=== PATIENT | male | born 1950 | race Two or more races ===

== ENCOUNTER 2016-12-27 13:26 | Emergency (ER) | payer MEDICAID ==
[~2016-12-27] VITALS: Ht 172.7 cm; Wt 72.1 kg
[~2016-12-27 13:26] MED LIST: AMIT10TA6 PO; NAP500T GT
[2016-12-27 14:26] VITALS: BP 158/65
[2016-12-27] MEDS ORDERED: KETOROLAC TROMETH 60MG/2ML VIAL IM ONE (15:00)
== END 2016-12-27 15:30 | disposition home or self-care (01) ==
LOC: ER 13:45
DX: M10.031 Idiopathic gout, right wrist (principal); F17.210 Nicotine dependence, cigarettes, uncomplicated; Z88.6 Allergy status to analgesic agent; Z79.899 Other long term (current) drug therapy
CPT/HCPCS: 73110; 73130; 96372; 99284; J1885

== ENCOUNTER 2017-05-02 08:01 | Emergency (ER) | payer MEDICAID ==
[2017-05-02 08:30] VITALS: BP 132/86
[2017-05-02] MEDS ORDERED: KETOROLAC TROMETH 60MG/2ML VIAL IM ONE (09:15)
== END 2017-05-02 09:47 | disposition home or self-care (01) ==
LOC: ER 08:05
DX: M10.071 Idiopathic gout, right ankle and foot (principal); F17.210 Nicotine dependence, cigarettes, uncomplicated; Z88.8 Allergy status to other drugs, medicaments and biological substances
CPT/HCPCS: 96372; 99283; J1885

== ENCOUNTER 2018-01-14 12:53 | Emergency (ER) | payer MEDICAID ==
[2018-01-14 13:44] VITALS: BP 165/69
[2018-01-14] MEDS ORDERED: KETOROLAC TROMETH 60MG/2ML VIAL IM ONE (14:45)
[2018-01-14] MEDS ORDERED: DEXAMETHASONE SOD PHOS 10MG/1ML VIAL INJ IM ONE (14:45)
== END 2018-01-14 15:08 | disposition home or self-care (01) ==
LOC: ER 12:53
DX: M13.842 Other specified arthritis, left hand (principal); M13.841 Other specified arthritis, right hand; M13.852 Other specified arthritis, left hip; M13.851 Other specified arthritis, right hip; F17.210 Nicotine dependence, cigarettes, uncomplicated; Z88.6 Allergy status to analgesic agent
CPT/HCPCS: 96372; 99284; J1100; J1885

== ENCOUNTER 2018-01-21 10:54 | Emergency (ER) | payer MEDICAID ==
[~2018-01-21] VITALS: Ht 172.7 cm; Wt 73.5 kg
[2018-01-21 11:53] VITALS: BP 125/77
[2018-01-21] MEDS ORDERED: KETOROLAC TROMETH 60MG/2ML VIAL IM ONE (12:30)
== END 2018-01-21 13:27 | disposition home or self-care (01) ==
LOC: ER 10:54
DX: M51.16 Intervertebral disc disorders with radiculopathy, lumbar region (principal); F17.210 Nicotine dependence, cigarettes, uncomplicated
CPT/HCPCS: 72100; 96372; 99284; J1885

== ENCOUNTER 2018-01-25 09:52 | Emergency (ER) | payer MEDICAID ==
[~2018-01-25] VITALS: Ht 172.7 cm; Wt 78.0 kg
[2018-01-25 10:11] VITALS: BP 163/73
[2018-01-25] MEDS ORDERED: KETOROLAC TROMETH 60MG/2ML VIAL IM ONE (10:30)
== END 2018-01-25 11:09 | disposition home or self-care (01) ==
LOC: ER 09:52
DX: M25.551 Pain in right hip (principal); M19.90 Unspecified osteoarthritis, unspecified site; M10.9 Gout, unspecified; F17.210 Nicotine dependence, cigarettes, uncomplicated; Z79.899 Other long term (current) drug therapy
CPT/HCPCS: 73502; 96372; 99284; J1885

== ENCOUNTER 2018-10-30 16:59 | Emergency (ER) | payer MEDICAID ==
[~2018-10-30] VITALS: Ht 172.7 cm; Wt 80.7 kg
[2018-10-30 17:17] VITALS: BP 188/79
== END 2018-10-30 22:19 | disposition left against medical advice (07) ==
LOC: ER 16:59
DX: M79.672 Pain in left foot (principal); Z53.21 Procedure and treatment not carried out due to patient leaving prior to being seen by health care provider

== ENCOUNTER 2018-10-31 11:49 | Emergency (ER) | payer MEDICAID ==
[~2018-10-31] VITALS: Ht 172.7 cm; Wt 80.7 kg
[2018-10-31 12:01] VITALS: BP 180/72
[2018-10-31] MEDS ORDERED: methylPREDNISolone SOD SUCC 125 MG/2 ML VL IM ONE (14:30)
[2018-10-31] MEDS ORDERED: KETOROLAC TROMETH 60MG/2ML VIAL IM ONE (14:30)
== END 2018-10-31 15:14 | disposition home or self-care (01) ==
LOC: ER 11:51
DX: M10.9 Gout, unspecified (principal); F17.210 Nicotine dependence, cigarettes, uncomplicated
CPT/HCPCS: 73610; 96372; 99283; J1885; J2930

== ENCOUNTER 2021-01-27 07:52 | Emergency (ER) | payer MEDICARE, MEDICAID ==
[~2021-01-27] VITALS: Ht 172.7 cm; Wt 72.6 kg
[~2021-01-27 07:52] MED LIST changes: -AMIT10TA6 PO; +AMIT1TAB34 PO
[2021-01-27] MEDS ORDERED: KETOROLAC TROMETH 60MG/2ML VIAL IM ONE (09:45)
[2021-01-27] MEDS ORDERED: methylPREDNISolone SOD SUCC 125 MG/2 ML VL IM ONE (09:45)
[2021-01-27 11:40] LABS: Basophils # (auto) 0.1 10 ^3/uL (0-0.2); Basophils % (auto) 0.4 % (0.0-2.0); Eosinophils # (auto) 0.1 10 ^3/uL (0-0.8); Eosinophils % (auto) 0.5 % (0.0-7.0); Hemoglobin 15.5 g/dL (13.5-17.5); Lymphocytes # (auto) 2.1 10 ^3/uL (0.4-5.4); Lymphocytes % (auto) 13.8 % (10.0-50.0); Mean Corpuscular Hemoglobin 34.3 pg (28.0-32.0); Mean Corpuscular Hgb Conc. 34.4 g/dL (32.0-36.0); Mean Corpuscular Volume 99.8 fL (80.0-100.0); Monocytes # (auto) 1.6 10 ^3/uL (0-1.3); Monocytes % (auto) 10.5 % (0.0-12.0); Neutrophils # (auto) 11.5 10 ^3/uL (1.6-8.6); Neutrophils % (auto) 74.8 % (37.0-80.0); Nucleated Red Blood Cells % 0.1 %; Red Blood Cells 4.51 10^6/uL (4.5-5.90); Red Cell Distribution Width 13.2 % (11.8-14.3); White Blood Cell 15.3 10^3/uL (4.4-10.8)
[2021-01-27 11:41] VITALS: BP 163/79
[2021-01-27] MEDS ORDERED: cefTRIAXone SOD 1,000 MG VL IM ONE (12:15)
== END 2021-01-27 13:24 | disposition home or self-care (01) ==
LOC: ER 07:52
DX: L03.113 Cellulitis of right upper limb (principal); M10.9 Gout, unspecified; F17.210 Nicotine dependence, cigarettes, uncomplicated; Z79.899 Other long term (current) drug therapy
CPT/HCPCS: 36415; 73110; 84550; 85025; 96372; 99284; J0696; J1885; J2930

== ENCOUNTER 2021-09-05 09:07 | Emergency (ER) | payer MEDICARE, MEDICAID ==
[~2021-09-05] VITALS: Ht 172.7 cm; Wt 77.1 kg
[2021-09-05 09:21] VITALS: BP 156/75
[2021-09-05] MEDS ORDERED: methylPREDNISolone SOD SUCC 125 MG/2 ML VL IM ONE (09:45)
[2021-09-05] MEDS ORDERED: KETOROLAC TROMETH 30 MG/ML 1ML VIAL IM ONE (09:45)
[2021-09-05] MEDS ORDERED: INDO50CA82 PO (10:31)
[2021-09-05] MEDS ORDERED: COLC1CAP PO (10:31)
== END 2021-09-05 10:40 | disposition home or self-care (01) ==
LOC: ER 09:07
DX: M10.9 Gout, unspecified (principal); I10 Essential (primary) hypertension; F17.210 Nicotine dependence, cigarettes, uncomplicated; Z79.899 Other long term (current) drug therapy
CPT/HCPCS: 96372; 99284; J1885; J2930

== ENCOUNTER 2022-08-07 16:50 | Emergency (ER) | payer MEDICARE, MEDICAID ==
[~2022-08-07] VITALS: Ht 172.7 cm; Wt 85.0 kg
[~2022-08-07 16:50] MED LIST changes: +COLC1CAP PO; +INDO50CA82 PO
[2022-08-07 18:49] VITALS: BP 143/79
[2022-08-07] MEDS ORDERED: INDO50CA82 PO (19:18)
== END 2022-08-07 19:36 | disposition home or self-care (01) ==
LOC: ER 16:50
DX: M10.9 Gout, unspecified (principal); I10 Essential (primary) hypertension; Z76.0 Encounter for issue of repeat prescription; Z88.6 Allergy status to analgesic agent

== ENCOUNTER 2024-04-07 17:28 | Emergency (ER) | payer MEDICARE, MEDICAID ==
[~2024-04-07] VITALS: Ht 172.7 cm; Wt 80.1 kg
[~2024-04-07 17:28] MED LIST changes: +AMIT10TA12 PO; -AMIT1TAB34 PO; +AML5T PO; +AMLO1TAB21 PO; +PRED20TA2 PO
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
[2024-04-07] MEDS ORDERED: IBUPROFEN 400 MG TAB PO PRN (18:15)
[2024-04-07] MEDS: COLCHICINE 0.6 MG CAP PO ONE (18:27)
--- NOTE | 2024-04-07 18:29 | DVH ---
EXAM: XY R KNEE 3V XRAY CLINICAL HISTORY: Gout flare up, evaluate fluid COMPARISON: XY R KNEE 2V XRAY on DOS: 12/07/23 TECHNIQUE: XY R KNEE 3V XRAY Findings/Impression: 3 views of the right knee. There is no evidence of an acute fracture, dislocation, blastic, or lytic lesions. No radiopaque foreign bodies. No joint effusion or superficial soft tissue abnormalities.
[2024-04-07 18:36] LABS: Basophils # (auto) 0.1 10 ^3/uL (0-0.2); Basophils % (auto) 0.8 % (0.0-2.0); Eosinophils # (auto) 0.2 10 ^3/uL (0-0.8); Eosinophils % (auto) 1.9 % (0.0-7.0); Hematocrit 34.7 % (41.0-53.0); Hemoglobin 11.5 g/dL (13.5-17.5); Lymphocytes # (auto) 2.5 10 ^3/uL (0.4-5.4); Lymphocytes % (auto) 21.7 % (10.0-50.0); Mean Corpuscular Hemoglobin 31.7 pg (28.0-32.0); Mean Corpuscular Hgb Conc. 33.1 g/dL (32.0-36.0); Mean Corpuscular Volume 95.6 fL (80.0-100.0); Monocytes # (auto) 1.3 10 ^3/uL (0-1.3); Monocytes % (auto) 11.4 % (0.0-12.0); Neutrophils # (auto) 7.4 10 ^3/uL (1.6-8.6); Neutrophils % (auto) 64.2 % (37.0-80.0); Nucleated Red Blood Cells % 0.1 %; Platelet Count (auto) 415 10^3/uL (140-450); Red Blood Cells 3.63 10^6/uL (4.5-5.90); Red Cell Distribution Width 14.3 % (11.8-14.3); White Blood Cell 11.6 10^3/uL (4.4-10.8)
[2024-04-07 18:38] VITALS: BP 104/63; PULSE 70; RESP 17; TEMP 97.7; O2SAT 97
[2024-04-07] MEDS: SODIUM CHLORIDE 0.9% 1,000 ML IV SCH (18:41)
[2024-04-07 18:46] LABS: Chloride 106 mmol/L (98-107); Potassium 4.2 mmol/L (3.5-5.1); Sodium 140 mmol/L (136-145)
[2024-04-07 18:47] LABS: Anion Gap 6 (5-15); Calcium 9.5 mg/dL (8.7-10.4); Carbon Dioxide 28 mmol/L (20-31)
[2024-04-07 18:52] LABS: BUN/Creatinine Ratio 7.6 (10.0-20.0); Glucose 98 mg/dL (74-106)
[2024-04-07 18:53] LABS: Blood Urea Nitrogen 7 mg/dL (9-23); INR 1.01 (0.9-1.15); Magnesium 2.1 mg/dL (1.6-2.6); Prothrombin Time 10.7 sec (9.3-11.8)
[2024-04-07] MEDS ORDERED: COLCHICINE 0.6 MG CAP PO SCH (22:00)
== END 2024-04-07 20:23 | disposition home or self-care (01) ==
LOC: ER 17:28
DX: M10.9 Gout, unspecified (principal); I10 Essential (primary) hypertension; M19.90 Unspecified osteoarthritis, unspecified site; Z98.890 Other specified postprocedural states; Z87.891 Personal history of nicotine dependence; Z79.52 Long term (current) use of systemic steroids; Z79.899 Other long term (current) drug therapy; Z86.2 Personal history of diseases of the blood and blood-forming organs and certain disorders involving the immune mechanism
CPT/HCPCS: 36415; 73562; 80048; 83605; 83735; 84443; 84550; 85025; 85610; 85730